=== PATIENT | male | born 1965 | race Two or more races ===

== ENCOUNTER 2021-06-09 20:50 | Inpatient (IN) | payer OTHER ==
[~2021-06-09] VITALS: Ht 175.3 cm; Wt 73.9 kg
--- NOTE | 2021-06-09 21:05 | NUR ---
BESSY 38 FROM HOME FOR C/O WEAKNESS S/P DILYSIS TODAY. PATIENT ALERT AND ORIENTED X3. BED RIDDEN WITH A DIAPER. PATIENT IN BED 08 ON MONITOR AND POX.
--- NOTE | 2021-06-09 21:17 | NUR ---
BLOOD COLLECTED AND SENT TO LAB
--- NOTE | 2021-06-09 21:21 | NUR ---
COVID SWAB DONE AND SENT TO LAB
--- NOTE | 2021-06-09 21:26 | NUR ---
POC GLUCOSE 105
[2021-06-09 21:30] LABS: BASOPHILS % (AUTO) 0.4 % (0.0-2.0); EOSINOPHILS % (AUTO) 0.2 % (0.0-6.0); HEMATOCRIT 26 % (39-51); HEMOGLOBIN 8.6 g/dL (13.5-17.5); LYMPHOCYTES # (AUTO) 0.3 K/uL (0.8-4.8); LYMPHOCYTES % (AUTO) 2.6 % (20.0-44.0); MEAN CORPUSCULAR HGB CONC 33 g/dl (31.0-36.0); MEAN CORPUSCULAR VOLUME 89 fL (80-96); MONOCYTES # (AUTO) 0.4 K/uL (0.1-1.30); MONOCYTES % (AUTO) 3.8 % (2.0-12.0); NEUTROPHILS # (AUTO) 9.1 K/uL (1.8-8.9); RED BLOOD CELL COUNT(AUTO) 2.97 MIL/uL (4.5-6.0); WHITE BLOOD COUNT (AUTO) 9.7 K/uL (4.3-11.0)
[2021-06-09 21:53] LABS: PLATELET COUNT (AUTO) 28 K/uL (150-450)
[2021-06-09 22:15] LABS: BAND % (MANUAL) 2 % (0.0-5.0); EOSINOPHILS % (MANUAL) 1 % (0-4); LYMPHOCYTES % (MANUAL) 2 % (16-48); MONOCYTES % (MANUAL) 5 % (0-11.0); NEUTROPHILS % (MANUAL) 90 (42-76)
[2021-06-09 22:23] LABS: CALCIUM, SERUM 7.6 mg/dL (8.5-10.1); CARBON DIOXIDE 32 mmol/L (21-32); CHLORIDE 102 mmol/L (98-107); CREATININE 2.9 mg/dL (0.6-1.3); GLUCOSE 109 mg/dL (74-106); SODIUM SERUM 135 mmol/L (136-145); UREA NITROGEN, BLOOD 33 mg/dL (7-18)
[2021-06-09 22:36] LABS: ALANINE AMINOTRANSFERASE 32 U/L (12-78); ALKALINE PHOSPHATASE 67 U/L (46-116); ASPARTATE AMINOTRANSFERASE 40 U/L (15-37); BILIRUBIN,DIRECT 0.4 mg/dL (0.0-0.2)
[2021-06-09] MEDS ORDERED: ZOLPIDEM TARTRATE 5 MG TABLET PO PRN (23:30)
[2021-06-09] MEDS ORDERED: ACETAMINOPHEN 325 MG TABLET PO PRN (23:30)
[2021-06-09] MEDS ORDERED: HYDROCODONE/APAP 10/325MG TABLET PO PRN (23:30)
[2021-06-09] MEDS ORDERED: Z GUARD REMEDY 4 OZ OINT TP PRN (23:30)
[2021-06-09] MEDS ORDERED: MAG HYDROX/AL HYDROX/SIMETH 30 ML UDC PO PRN (23:30)
[2021-06-09] MEDS ORDERED: MAGNESIUM HYDROXIDE 30 ML UDC PO PRN (23:30)
[2021-06-09] MEDS ORDERED: ONDANSETRON HCL/PF 4 MG/2 ML VIAL IVP PRN (23:30)
[2021-06-09] MEDS ORDERED: TEMAZEPAM 15 MG CAPSULE PO PRN (23:30)
[2021-06-09] MEDS ORDERED: HYDROCODONE/APAP 5/325MG TABLET PO PRN (23:30)
--- NOTE | 2021-06-10 | NUR ---
MRSA SWAB COLLECTED AND SENT TO LAB. PATIENT'S BELONGINGS LIST DONE.
--- NOTE | 2021-06-10 00:17 | NUR ---
REPORT GIVEN TO SHREYA SHEEHAN
--- NOTE | 2021-06-10 00:17 | NUR ---
RN NOTE RECEIVED REPORT FROM FELIPE AT ER FOR PT ADMISSION.
--- NOTE | 2021-06-10 00:27 | NUR ---
RN NOTE RECEIVED PATIENT ON AUBIRE FROM ER, WITH NO SOB OR DISCOMFORT. PATIENT ON NON REBREATHER MASK 10L SATURATING AT 100%. PATIENT IS A/O X 3, RESPONDS WELL TO QUESTIONS. L FA 18 G IV SITE NOTED, FLUSHED, PATENT, AND INTACT.PATIENT IS ON TELE MONITOR, SR 77HR. PATIENT WANTS TO HAVE A CODE STATUS OF DNR/DNI. PATIENT WEARING DIAPER, IS NOT ABLE TO AMBULATE AND IS BED BOUND, HOWEVER HAS MOBILITY TO MOVE AROUND FROM THE LEFT SIDE. ALL ISOLATION PRECAUTIONS TAKEN, BED IN LOW POSITION, LOCKED, AND IN CALL LIGHT WITHIN REACH. WILL CONTINUE TO MONITOR PATIENT THROUGHOUT THE NIGHT.
[2021-06-10] MEDS ORDERED: CEFEPIME 1 GM in IV D5W 50 ML IV SCH ×4 (00:30)
--- NOTE | 2021-06-10 00:39 | NUR ---
PATIENT TRANSFERRED VIA ACLS.
--- NOTE | 2021-06-10 01:35 | NUR ---
RN NOTE PATIENT TAKING OFF THE NON REBREATHER MASK, AND SAYING HE DOES NOT WANT IT. EXPLAINED THE IMPORTANCE OF MAINTAINING THE NON REBREATHER MASK ON IN ORDER TO NOT DESATURATE, HE SAID " I DO NOT CARE".
--- NOTE | 2021-06-10 01:46 | NUR ---
RN NOTE CHARGE NURSE BIRGIT AT SIDE, ASKED THE PATIENT HIS CODE STATUS ONCE MORE. HE CONTINUES TO WANT TO BE DNR/ DNI. PATIENT DID AGREE TO PUT THE NON REBREATHER MASK ON.
--- NOTE | 2021-06-10 01:50 | NUR ---
RN NOTE ON NON REBREATHER NOW AT 15L - SAT 100%
--- NOTE | 2021-06-10 01:52 | NUR ---
RN NOTE IV ABX NOT GIVEN AT ER, FAXED AND CALLED CLAUDIA TO BRING ME HIS CEFEPIME 1 GM.
[2021-06-10 02:00] VITALS: BP 121/68
[2021-06-10] MEDS ORDERED: CEFEPIME 1 GM VIAL ONE (02:07)
--- NOTE | 2021-06-10 06:00 | NUR ---
RN NOTE PATIENT KEEPS REMOVING NON BREATHER MASK AND DESATURATES IN OXYGEN LEVEL. HAVE TO CONSISTENTLY RE DIRECT PATIENT TO KEEP MASK ON.
[2021-06-10 06:46] LABS: BASOPHILS % (AUTO) 0.3 % (0.0-2.0); EOSINOPHILS % (AUTO) 0.3 % (0.0-6.0); HEMATOCRIT 24 % (39-51); HEMOGLOBIN 7.8 g/dL (13.5-17.5); LYMPHOCYTES # (AUTO) 0.6 K/uL (0.8-4.8); LYMPHOCYTES % (AUTO) 6.6 % (20.0-44.0); MEAN CORPUSCULAR HGB CONC 33 g/dl (31.0-36.0); MEAN CORPUSCULAR VOLUME 89 fL (80-96); MONOCYTES # (AUTO) 0.5 K/uL (0.1-1.30); MONOCYTES % (AUTO) 5.4 % (2.0-12.0); NEUTROPHILS # (AUTO) 7.4 K/uL (1.8-8.9); NEUTROPHILS % (AUTO) 87.4 % (43.0-81.0); RED BLOOD CELL COUNT(AUTO) 2.67 MIL/uL (4.5-6.0); WHITE BLOOD COUNT (AUTO) 8.4 K/uL (4.3-11.0)
[2021-06-10 07:05] LABS: CALCIUM, SERUM 7.6 mg/dL (8.5-10.1); PHOSPHORUS 4.5 mg/dL (2.5-4.9); POTASSIUM 4.3 mmol/L (3.5-5.1)
--- NOTE | 2021-06-10 07:20 | NUR ---
RN CLOSING NOTES NO SIG CHANGES THROUGHOUT THE NIGHT. ENDORSED PATIENT CARE TO AM NURSE.
--- NOTE | 2021-06-10 07:30 | NUR ---
RN OPENING NOTE RECEIVED PATIENT IN BED SLEEPING, WITH NO SOB OR DISCOMFORT. PATIENT ON NON REBREATHER MASK 15L SATURATING AT 100%. L FA 18 G IV SITE NOTED, FLUSHED, PATENT, AND INTACT.PATIENT IS ON TELE MONITOR NSR. PATIENT WEARING DIAPER, IS NOT ABLE TO AMBULATE AND IS BED BOUND, HOWEVER HAS MOBILITY TO MOVE AROUND FROM THE LEFT SIDE. ALL ISOLATION PRECAUTIONS TAKEN, BED IN LOW POSITION, LOCKED, AND IN CALL LIGHT WITHIN REACH. WILL CONTINUE TO MONITOR PATIENT THROUGHOUT THE SHIFT.
[2021-06-10] MEDS: LEVOTHYROXINE SODIUM 75 MCG TABLET PO SCH (07:35)
[2021-06-10] MEDS: PANTOPRAZOLE 40 MG TABLET.DR PO SCH (07:35)
[2021-06-10 08:00] VITALS: BP 140/69
[2021-06-10] MEDS: FINASTERIDE (5 MG) 5 MG TABLET PO SCH (08:05)
[2021-06-10] MEDS: GABAPENTIN 100 MG CAPSULE PO SCH ×3 (08:07→17:24)
[2021-06-10] MEDS: Fenofibrate 48 MG TABLET PO SCH (08:14)
[2021-06-10] MEDS: DULOXETINE HCL 30 MG CAPSULE.DR PO SCH (08:14)
[2021-06-10] MEDS: CALCIUM CARBONATE (1250) 500 MG TABLET PO SCH (08:14)
[2021-06-10] MEDS: FOLIC ACID 1 MG TABLET PO SCH (08:14)
[2021-06-10] MEDS: AMLODIPINE BESYLATE 10 MG TABLET PO SCH (08:15)
[2021-06-10] MEDS: LEVETIRACETAM (250 MG) 250 MG TABLET PO SCH ×2 (08:18→21:31)
[2021-06-10 08:34] LABS: PLATELET COUNT (AUTO) 37 K/uL (150-450)
[2021-06-10] MEDS ORDERED: AMLO-213 PO (08:44)
[2021-06-10] MEDS ORDERED: TAMS-12 PO (08:44)
[2021-06-10] MEDS ORDERED: DULO30CA2 PO (08:44)
[2021-06-10] MEDS ORDERED: SENN1TAB6 PO (08:44)
[2021-06-10] MEDS ORDERED: AMIN30LI2 PO (08:44)
[2021-06-10] MEDS ORDERED: CHOL100043 PO (08:44)
[2021-06-10] MEDS ORDERED: MAGN400O6 PO (08:44)
[2021-06-10] MEDS ORDERED: LORA-259 PO (08:44)
[2021-06-10] MEDS ORDERED: HYDR200T4 PO (08:44)
[2021-06-10] MEDS ORDERED: BISA10SU11 RC (08:44)
[2021-06-10] MEDS ORDERED: FINA5TAB11 PO (08:44)
[2021-06-10] MEDS ORDERED: GABA-536 PO (08:44)
[2021-06-10] MEDS ORDERED: PRED10TA PO (08:44)
[2021-06-10] MEDS ORDERED: CALC500T52 PO (08:44)
[2021-06-10] MEDS ORDERED: QUET25TA PO (08:44)
[2021-06-10] MEDS ORDERED: WARF3TAB59 PO (08:44)
[2021-06-10] MEDS ORDERED: LEVO25TA7 PO (08:44)
[2021-06-10] MEDS ORDERED: PANT40TA2 PO (08:44)
[2021-06-10] MEDS ORDERED: ATOR40TA PO (08:44)
[2021-06-10] MEDS ORDERED: ACET-868 PO (08:44)
[2021-06-10] MEDS ORDERED: ESCI10TA PO (08:44)
[2021-06-10] MEDS ORDERED: OMEG1CAP40 PO (08:44)
[2021-06-10] MEDS ORDERED: FENO67CA PO (08:44)
[2021-06-10] MEDS ORDERED: LEVE500T9 PO (08:44)
[2021-06-10] MEDS ORDERED: FOLI0.4T6 PO (08:44)
[2021-06-10] MEDS ORDERED: HYDR-4077 PO (08:44)
[2021-06-10] MEDS ORDERED: HYDR-4303 PO (08:44)
[2021-06-10] MEDS: HYDROXYCHLOROQUINE 200 MG TABLET PO SCH (08:58)
[2021-06-10] MEDS: predniSONE 5 MG TABLET PO SCH (08:58)
[2021-06-10] MEDS: PROSOURCE / PROSTAT (PYXIS) 30 ML UDC PO SCH ×3 (08:58→17:24)
[2021-06-10 10:30] LABS: ABG BASE EXCESS -1.1 mmol/L; ABG OXYGEN SATURATION 98.7 % (92.0-98.5); ABG PH 7.408 (7.350-7.450); ABG PO2 155.2 mmHg (75.0-100.0); AaDO2 519.8 mmHg; COHb 0.3 % (0.5-1.5); MetHb 0.2 % (0.0-1.5); O2Hb 98.2 % (94.0-97.0); SITE, ABG Right Radial; VENT MODE, BG NRB MASK
[2021-06-10] MEDS: methylPREDNISolone SOD SUCC 125 MG/2ML VIAL IV SCH ×3 (10:36→21:30)
[2021-06-10 12:00] VITALS: BP 119/69
[2021-06-10 12:44] LABS: THYROID STIMULATING HORMONE 3.216 uIU/mL (0.358-3.74)
[2021-06-10] MEDS ORDERED: CEFEPIME 1 GM in IV D5W 50 ML IV ONE (15:00)
[2021-06-10 16:00] VITALS: BP 119/77
[2021-06-10 17:51] LABS: LYMPHOCYTES % (MANUAL) 7 % (16-48); MONOCYTES % (MANUAL) 4 % (0-11.0); NEUTROPHILS % (MANUAL) 89 (42-76)
--- NOTE | 2021-06-10 18:39 | NUR ---
RN CLOSING NOTE PATIENT REMAINED STABLE THROUGHOUT SHIFT. PATIENT IS RESTING IN BED WITH NO SOB OR DISCOMFORT. PATIENT ON NON REBREATHER MASK 15L SATURATING AT 100%. L FA 18 G IV SITE NOTED, FLUSHED, PATENT, AND INTACT.PATIENT IS ON TELE MONITOR NSR IN THE 70'S. PATIENT WEARING DIAPER, IS NOT ABLE TO AMBULATE AND IS BED BOUND, HOWEVER HAS MOBILITY TO MOVE AROUND FROM THE LEFT SIDE. ALL NEEDS MET AND MEDS ADMINISTERED PER MD ORDER. ALL SAFETY MEASURES NOTED AND ACCOUNTED FOR. ALL ISOLATION PRECAUTIONS TAKEN, BED IN LOW POSITION, LOCKED, AND CALL LIGHT WITHIN REACH. WILL ENDORSE TO SHOVEL OILER RN..
--- NOTE | 2021-06-10 19:20 | NUR ---
PATIENT IN BED, ASLEEP ON NON REBREATHER MASK 15L SATURATING AT 100%, NO SOB/ACUTE DISTRESS NOTED, NSR ON TELE MONITOR WITH HR IN THE 80-S AT THIS TIME, ALL SAFETY MEASURES IN PLACED, ISOLATION PRECAUTIONS FOLLOWED, COVID PCR STILL PENDING, WILL CONTINUE TO MONITOR CLOSELY.
[2021-06-10 20:00] VITALS: BP 138/71
[2021-06-10] MEDS: ATORVASTATIN 40 MG TABLET PO SCH (21:31)
[2021-06-10] MEDS: TAMSULOSIN 0.4 MG CAP.SR.24H PO SCH (21:31)
[2021-06-11] VITALS: BP 126/80
[2021-06-11] MEDS ORDERED: EPOETIN ALFA (4000 UNIT) 4,000 UNIT/ML VIAL IV SCH (00:30)
[2021-06-11] MEDS ORDERED: VANCOMYCIN 1 GM VIAL ONE (03:03)
[2021-06-11 04:00] VITALS: BP 129/78
[2021-06-11] MEDS: methylPREDNISolone SOD SUCC 125 MG/2ML VIAL IV SCH ×3 (04:15→20:04)
--- NOTE | 2021-06-11 06:38 | NUR ---
RN CLOSING NOTE, PATIENT IN BED, ON NRM 15LPM, NO SOB/ACUTE DISTRESS NOTED OR DISCOMFORT, 1005 O2 SAT, MORE COMPLIANT, HE DIDN'T ATTEMPT TO REMOVED MASK LIKE LAST NIGHT, BUT SOON HE REMOVES 02 DROPS TO 60-70S, NSR IN TELE MONITOR NSR IN THE 70'S-80S. OTHERWISE STABLE THROUGHOUT NIGHT ON NRM, ALL NEEDS MET AND MEDS ADMINISTERED ORDERED, ALL SAFETY MEASURES FOLLOWED, ALL ISOLATION PRECAUTIONS IN PLACED, BED LOCKED AND IN LOWEST POSITION, CALL LIGHT WITHIN REACH, WILL ENDORSE CONTINUITY OF CARE TO ONCOMING NURSE.
--- NOTE | 2021-06-11 07:24 | NUR ---
RN OPENING NOTE RECEIVE REPORT FROM DRILLING INSPECTOR NURSE. PATIENT IN STABLE CONDITION AND RESTING COMFORTABLY. ON NRM AT 15L/MIN. WILL FOLLOW UP AM LABS AND DOCTORS ORDERS. PROPER ISOLATION IN PLACE. BED ON LOWEST POSITION WITH HOB ELEVATED AND 3 SIDE RAIL UP. CALL LIGHT WITHIN REACH. WILL CONTINUE TO MONITOR.
[2021-06-11 07:26] LABS: BASOPHILS % (AUTO) 0.5 % (0.0-2.0); EOSINOPHILS % (AUTO) 0.1 % (0.0-6.0); HEMATOCRIT 30 % (39-51); HEMOGLOBIN 9.5 g/dL (13.5-17.5); LYMPHOCYTES # (AUTO) 0.2 K/uL (0.8-4.8); LYMPHOCYTES % (AUTO) 6.8 % (20.0-44.0); MEAN CORPUSCULAR HGB CONC 32 g/dl (31.0-36.0); MEAN CORPUSCULAR VOLUME 89 fL (80-96); MONOCYTES # (AUTO) 0.1 K/uL (0.1-1.30); MONOCYTES % (AUTO) 2.5 % (2.0-12.0); NEUTROPHILS # (AUTO) 3.3 K/uL (1.8-8.9); NEUTROPHILS % (AUTO) 90.1 % (43.0-81.0); PLATELET COUNT (AUTO) 63 K/uL (150-450); RED BLOOD CELL COUNT(AUTO) 3.39 MIL/uL (4.5-6.0); WHITE BLOOD COUNT (AUTO) 3.6 K/uL (4.3-11.0)
[2021-06-11 07:40] LABS: CALCIUM, SERUM 7.9 mg/dL (8.5-10.1); CREATININE 4.1 mg/dL (0.6-1.3); POTASSIUM 5.2 mmol/L (3.5-5.1)
[2021-06-11 08:00] VITALS: BP 133/83
[2021-06-11] MEDS: FOLIC ACID 1 MG TABLET PO SCH (08:07)
[2021-06-11] MEDS: DULOXETINE HCL 30 MG CAPSULE.DR PO SCH (08:07)
[2021-06-11] MEDS: Fenofibrate 48 MG TABLET PO SCH (08:07)
[2021-06-11] MEDS: FINASTERIDE (5 MG) 5 MG TABLET PO SCH (08:07)
[2021-06-11] MEDS: LEVOTHYROXINE SODIUM 75 MCG TABLET PO SCH (08:08)
[2021-06-11] MEDS: AMLODIPINE BESYLATE 10 MG TABLET PO SCH (08:10)
[2021-06-11] MEDS: HYDROXYCHLOROQUINE 200 MG TABLET PO SCH (08:12)
[2021-06-11] MEDS: predniSONE 5 MG TABLET PO SCH (08:12)
[2021-06-11] MEDS: PANTOPRAZOLE 40 MG TABLET.DR PO SCH (08:12)
[2021-06-11] MEDS: LEVETIRACETAM (250 MG) 250 MG TABLET PO SCH ×2 (08:12→20:04)
[2021-06-11] MEDS: CALCIUM CARBONATE (1250) 500 MG TABLET PO SCH (08:12)
[2021-06-11] MEDS: GABAPENTIN 100 MG CAPSULE PO SCH ×3 (08:13→16:42)
[2021-06-11] MEDS: PROSOURCE / PROSTAT (PYXIS) 30 ML UDC PO SCH ×3 (08:14→16:53)
[2021-06-11 12:00] VITALS: BP 118/68
--- NOTE | 2021-06-11 14:17 | NUR ---
RN NOTE INFORM DR. KUMARI PER PATIENT INR OF 4.38
[2021-06-11] MEDS: CEFEPIME 2 GM in IV D5W 100 ML IV SCH (15:25)
[2021-06-11 16:00] VITALS: BP 133/78
[2021-06-11] MEDS: CARVEDILOL 3.125 MG TABLET PO SCH (16:42)
--- NOTE | 2021-06-11 19:00 | NUR ---
RN NOTE RECEIVED PATINET IN BED RESTING ALERT ORIENTED X3-4 VERBALLY RESPONSIVE ON 15L NON REBREATHER MASK O2:100% IV SITE IS ON LEFT FOREARM INTACT PATENT AND RIGHT UPPER CHEST PERM-CATH FOR DIALYSIS.SAFETY MEASURE IMPLEMENT BED IN LOW POSITION AND LOCKED HEAD OF THE BED ELEVATED CALL LIGHT WITHIN REACH CONTINUE TO MONITOR.
--- NOTE | 2021-06-11 19:55 | NUR ---
RN CLOSING NOTE PATIENT REMAIN IN STABLE CONDITION THROUGHOUT SHIFT. VITAL SIGNS WNL. REMAIN ON NONREBREATHER MASK AT 15L/MIN AND O2 100%. RECEIVE HEMODIALYSIS WITH 2L TAKEN OUT. PATIENT REMAIN IN STABLE CONDITION POST HEMODIALYSIS. REPORT WAS GIVEN TO PROFESSIONAL DEVELOPMENT INSTRUCTOR NURSE. ALL SAFETY MEASURE IN PLACE.
[2021-06-11 20:00] VITALS: BP 134/76
[2021-06-11] MEDS: TAMSULOSIN 0.4 MG CAP.SR.24H PO SCH (21:53)
[2021-06-11] MEDS: ATORVASTATIN 40 MG TABLET PO SCH (21:53)
[2021-06-12] VITALS: BP 136/78
[2021-06-12 04:00] VITALS: BP 118/70
[2021-06-12] MEDS: methylPREDNISolone SOD SUCC 125 MG/2ML VIAL IV SCH ×3 (04:39→21:14)
--- NOTE | 2021-06-12 06:29 | NUR ---
RN NOTE PATIENT REFUSES ALL MORNING LABS EXPLAINED RISKS AND BENEFITS HE STILL REFUSED NOTIFIED WREATH AND GARLAND MAKER FREDERICK SIDDIQUI CONTINUE TO MONITOR.
--- NOTE | 2021-06-12 06:42 | NUR ---
RN NOTE PATIENT REMAINS ALERT ORIENTED X3-4 VERBALLY RESPONSIVE ON 15L OXYGEN VIA NON REBREATHER MASK O2:100%,HE REFUSED MORNING LABS INFORMED MD KEPT CLEAN AND DRY ALL THE TIME,KEPT COMFORTABLE REPOSITIONED EVERY 2 HOURS,KEPT HEAD OF THE BED ELEVATED ALL THE TIME,ENDORSE NEXT COMING SHIFT FOR CONTINUATION OF CARE.
[2021-06-12 08:00] VITALS: BP 122/75
[2021-06-12] MEDS: PANTOPRAZOLE 40 MG TABLET.DR PO SCH (08:14)
[2021-06-12] MEDS: LEVOTHYROXINE SODIUM 75 MCG TABLET PO SCH (08:14)
[2021-06-12] MEDS: FINASTERIDE (5 MG) 5 MG TABLET PO SCH (08:18)
[2021-06-12] MEDS: CALCIUM CARBONATE (1250) 500 MG TABLET PO SCH (08:19)
[2021-06-12] MEDS: DULOXETINE HCL 30 MG CAPSULE.DR PO SCH (08:19)
[2021-06-12] MEDS: Fenofibrate 48 MG TABLET PO SCH (08:19)
[2021-06-12] MEDS: FOLIC ACID 1 MG TABLET PO SCH (08:19)
[2021-06-12] MEDS: HYDROXYCHLOROQUINE 200 MG TABLET PO SCH (08:19)
[2021-06-12] MEDS: LEVETIRACETAM (250 MG) 250 MG TABLET PO SCH ×2 (08:19→21:15)
[2021-06-12] MEDS: GABAPENTIN 100 MG CAPSULE PO SCH ×3 (08:19→17:06)
[2021-06-12] MEDS: predniSONE 5 MG TABLET PO SCH (08:19)
[2021-06-12] MEDS: PROSOURCE / PROSTAT (PYXIS) 30 ML UDC PO SCH ×3 (08:20→17:06)
[2021-06-12] MEDS: AMLODIPINE BESYLATE 10 MG TABLET PO SCH (08:24)
[2021-06-12] MEDS: CARVEDILOL 3.125 MG TABLET PO SCH ×2 (08:24→17:06)
--- NOTE | 2021-06-12 09:30 | NUR ---
RN NOTES DUE MEDS GIVEN
[2021-06-12 12:00] VITALS: BP 124/73
[2021-06-12 14:58] LABS: HEMATOCRIT 25 % (39-51); LYMPHOCYTES # (AUTO) 0.2 K/uL (0.8-4.8); LYMPHOCYTES % (AUTO) 3.9 % (20.0-44.0); MEAN CORPUSCULAR HGB CONC 32 g/dl (31.0-36.0); MEAN CORPUSCULAR VOLUME 89 fL (80-96); MONOCYTES # (AUTO) 0.3 K/uL (0.1-1.30); MONOCYTES % (AUTO) 5.1 % (2.0-12.0); NEUTROPHILS # (AUTO) 5.3 K/uL (1.8-8.9); PLATELET COUNT (AUTO) 65 K/uL (150-450); RED BLOOD CELL COUNT(AUTO) 2.84 MIL/uL (4.5-6.0); WHITE BLOOD COUNT (AUTO) 5.8 K/uL (4.3-11.0)
[2021-06-12] MEDS: CEFEPIME 2 GM in IV D5W 100 ML IV SCH (15:28)
[2021-06-12 16:00] VITALS: BP 134/65
[2021-06-12 16:04] LABS: CALCIUM, SERUM 7.4 mg/dL (8.5-10.1); CREATININE 3.6 mg/dL (0.6-1.3); POTASSIUM 4.9 mmol/L (3.5-5.1)
--- NOTE | 2021-06-12 18:45 | NUR ---
RIBBON WINDER CLOSING NOTES PT RESTING COMFORTABLY, A/O 4, RESPIRATION UNLABORED ON NRM AT 15L, O2 SAT 100%. DENIES PAIN AT THIS TIME. SR HR 80s- 90s. RT CHEST PERMACATH IN PLACE. LFA 18G FLUSHES WELL. SITE CLEAR. PERFORMED PM CARE EARLIER. ASSISTED/ TURNED AND REPOSITIONED Q 2 HOURS. HOB ELEVATED. SAFETY MEASURES IN PLACE, BED LOW LOCKED, ALL NEEDS MET AT THIS TIME. WILL ENDORSE TO NEXT SHIFT FOR JUSTEN.
[2021-06-12 20:00] VITALS: BP 119/72
--- NOTE | 2021-06-12 20:00 | NUR ---
MOUNTING MACHINE OPERATOR CLOSING NOTES RECEIVED PT IN BED RESTING A/O X4, NO SOB NO DISTRESS NOTED RESPIRATION EVEN UNLABORED ,PTS ON NRM AT 15L, O2 SAT 99- 100%. NO C/O OF PAIN AT THIS TIME. SR 79, V/S STABLE AFEBRILE ,WITH RT CHEST PERMACATH IN PLACE. LFA 18G INTACT AND FLUSHES WELL. ALL DUE MEDS GIVEN ORDERED NO ASE NOTED. TURNED AND REPOSITIONED Q 2 HOURS. HOB ELEVATED.AT ALL TIME . SAFETY MEASURES IN PLACE, BED LOW LOCKED, ALL NEEDS ATTENDED TOO.WILL CONTINUE TO MONITOR PTS. Addendum: 06/13/21 at 0725 by MADDIE GARVEY RN rn opening notes
[2021-06-12] MEDS: TAMSULOSIN 0.4 MG CAP.SR.24H PO SCH (21:15)
[2021-06-12] MEDS: ATORVASTATIN 40 MG TABLET PO SCH (21:15)
[2021-06-13] VITALS: BP 122/67
[2021-06-13 04:00] VITALS: BP 114/69
[2021-06-13] MEDS: methylPREDNISolone SOD SUCC 125 MG/2ML VIAL IV SCH ×3 (05:44→17:09)
[2021-06-13 06:51] LABS: CALCIUM, SERUM 7.7 mg/dL (8.5-10.1); CREATININE 4.1 mg/dL (0.6-1.3); POTASSIUM 5.2 mmol/L (3.5-5.1)
[2021-06-13 07:20] LABS: HEMATOCRIT 27 % (39-51); HEMOGLOBIN 8.3 g/dL (13.5-17.5); LYMPHOCYTES # (AUTO) 0.2 K/uL (0.8-4.8); LYMPHOCYTES % (AUTO) 3.1 % (20.0-44.0); MEAN CORPUSCULAR HGB CONC 32 g/dl (31.0-36.0); MEAN CORPUSCULAR VOLUME 89 fL (80-96); MONOCYTES # (AUTO) 0.2 K/uL (0.1-1.30); MONOCYTES % (AUTO) 4.3 % (2.0-12.0); NEUTROPHILS % (AUTO) 92.6 % (43.0-81.0); PLATELET COUNT (AUTO) 68 K/uL (150-450); RED BLOOD CELL COUNT(AUTO) 2.98 MIL/uL (4.5-6.0); WHITE BLOOD COUNT (AUTO) 5.4 K/uL (4.3-11.0)
--- NOTE | 2021-06-13 07:25 | NUR ---
tele closing rn notes endorse to rn amirah for continuity of care, pts stable no frankie the whole shift
--- NOTE | 2021-06-13 07:30 | NUR ---
LIBRARY ACQUISITIONS TECHNICIAN AM NOTES PATIENT IN BED, AO X 4, ON 15L NRM, O2 SAT 100%, NOT IN ANY DISTRESS, RESPIRATION UNLABORED. NO SOB OR DISCOMFORT. SR HR 80 ON MONITOR. WITH RIGHT CHEST PERMA CATH IN PLACE. CDI DRESSING. LFA 18G FLUSHES WELL, SITE CLEAR. UNABLE TO AMBULATE, WEARS DIAPER, ABLE TO TURN SELF.RENAL STANDARD DIET. ABLE TO SWALLOW PILLS. HOB ELEVATED. SAFETY MEASURES IN PLACE. ISOLATION PRECAUTION OBSERVED. BED LOW LOCKED, SRU X 2, CALL LIGHT WITHIN REACH, WILL CONT TO MONITOR.
[2021-06-13 08:00] VITALS: BP 124/69
[2021-06-13] MEDS: LEVOTHYROXINE SODIUM 75 MCG TABLET PO SCH (08:29)
[2021-06-13] MEDS: PANTOPRAZOLE 40 MG TABLET.DR PO SCH (08:29)
[2021-06-13] MEDS: CALCIUM CARBONATE (1250) 500 MG TABLET PO SCH (08:34)
[2021-06-13] MEDS: DULOXETINE HCL 30 MG CAPSULE.DR PO SCH (08:34)
[2021-06-13] MEDS: Fenofibrate 48 MG TABLET PO SCH (08:34)
[2021-06-13] MEDS: FOLIC ACID 1 MG TABLET PO SCH (08:35)
[2021-06-13] MEDS: GABAPENTIN 100 MG CAPSULE PO SCH ×3 (08:35→17:09)
[2021-06-13] MEDS: LEVETIRACETAM (250 MG) 250 MG TABLET PO SCH ×2 (08:35→21:15)
[2021-06-13] MEDS: HYDROXYCHLOROQUINE 200 MG TABLET PO SCH (08:35)
[2021-06-13] MEDS: CARVEDILOL 3.125 MG TABLET PO SCH ×2 (08:36→17:00)
[2021-06-13] MEDS: AMLODIPINE BESYLATE 10 MG TABLET PO SCH (08:36)
[2021-06-13] MEDS: PROSOURCE / PROSTAT (PYXIS) 30 ML UDC PO SCH ×3 (08:37→17:09)
[2021-06-13] MEDS: FINASTERIDE (5 MG) 5 MG TABLET PO SCH (08:38)
[2021-06-13] MEDS: predniSONE 5 MG TABLET PO SCH (08:38)
--- NOTE | 2021-06-13 09:30 | NUR ---
RN NOTES DUE MEDS GIVEN
--- NOTE | 2021-06-13 11:30 | NUR ---
RN NOTES PER DR. HAZEL, PUT PATIENT ON 6 LITERS O2 NASAL CANULA THEN DO ABG POST 30 MINUTES. ELOY Gil NOTIFIED.
[2021-06-13 12:00] VITALS: BP 115/70
[2021-06-13 12:20] LABS: ABG BASE EXCESS -2.6 mmol/L; ABG PO2 71.8 mmHg (75.0-100.0); AaDO2 202.4 mmHg; COHb 0.8 % (0.5-1.5); MetHb 0.2 % (0.0-1.5); O2Hb 92.1 % (94.0-97.0); SITE, ABG Right Radial; VENT MODE, BG 6L NC
[2021-06-13] MEDS: CEFEPIME 2 GM in IV D5W 100 ML IV SCH (15:08)
[2021-06-13 16:00] VITALS: BP 117/73
--- NOTE | 2021-06-13 16:39 | NUR ---
RN NOTES VERIFIED WITH DR. SOLIMAN, PATIENT'S MORELOS CATHETER WAS CHANGED LAST 06/11/2021. PER HIM, CANCEL NEW ORDER TO REPLACE FOELY CATHETER. Addendum: 06/13/21 at 1640 by GUZMAN CARRILLO RN CORRECTION: DISREGARD THIS DOCUMENTATION INTENDED FOR ANOTHER PATIENT.
--- NOTE | 2021-06-13 17:11 | NUR ---
RN NOTES COREG NOT GIVEN. ONGOING HD
--- NOTE | 2021-06-13 18:53 | NUR ---
CHIEF MARKETING OFFICER CLOSING NOTES PT RESTING COMFORTABLY, A/O 4, RESPIRATION UNLABORED ON 6L O2 NASAL CANULA. O2 SAT 95%-100%. DENIES PAIN AT THIS TIME. SR HR 80s- 90s. RT CHEST PERMACATH IN PLACE. LFA 18G FLUSHES WELL. SITE CLEAR. PERFORMED PM CARE EARLIER. ASSISTED/ TURNED AND REPOSITIONED Q 2 HOURS. HOB ELEVATED. SAFETY MEASURES IN PLACE, BED LOW LOCKED, ALL NEEDS MET AT THIS TIME. WILL ENDORSE TO NEXT SHIFT FOR JUSTEN. HEMODIALYSIS TODAY WITH 1100 ML OUTPUT
[2021-06-13 20:00] VITALS: BP_SYST 108; BP_SYST 122; BP_DIAS 71; BP_DIAS 77
[2021-06-13] MEDS: ATORVASTATIN 40 MG TABLET PO SCH (21:14)
[2021-06-13] MEDS: TAMSULOSIN 0.4 MG CAP.SR.24H PO SCH (21:15)
[2021-06-14] VITALS: BP 112/70
[2021-06-14 04:00] VITALS: BP 108/70
--- NOTE | 2021-06-14 04:16 | NUR ---
RN notes Eyes closed,, in bed resting comfortably. No distress noted breathing even and unlabored. On 6lpm O2 via nasal cannula tolerating well. Alert and oriented x 2 with episodes of confusion. Able to verbally communicate needs. Follows command. No complaint of pain or discomfort. No significant change of condition. Kept clean and dry. Will endorse to next shift for continuity of care.
--- NOTE | 2021-06-14 07:33 | NUR ---
PACKER FUSER OPENING NOTES RECEIVED PATIENT IN BED RESTING COMFORTABLY, A/OX4, RESPIRATION UNLABORED ON 6L O2 NASAL CANULA. O2 SAT 95%-100%. DENIES PAIN AT THIS TIME. TELE MONITOR WITH A CURRENT READING OF SR HR 80s. R CHEST PERMACATH IN PLACE. LFA 18G FLUSHES WELL. SITE CLEAR. HOB ELEVATED. SAFETY MEASURES IN PLACE, BED IN LOW POSITION AND LOCKED, RAILS UP X2, CALL LIGHT WITHIN REACH. WILL CONTINUE TO MONITOR PATIENT.
[2021-06-14] MEDS: methylPREDNISolone SOD SUCC 125 MG/2ML VIAL IV SCH ×2 (08:41→17:12)
[2021-06-14] MEDS: LEVOTHYROXINE SODIUM 75 MCG TABLET PO SCH (08:44)
[2021-06-14] MEDS: CARVEDILOL 3.125 MG TABLET PO SCH ×2 (08:44→17:13)
[2021-06-14] MEDS: AMLODIPINE BESYLATE 10 MG TABLET PO SCH (08:44)
[2021-06-14] MEDS: PANTOPRAZOLE 40 MG TABLET.DR PO SCH (08:44)
[2021-06-14] MEDS: FOLIC ACID 1 MG TABLET PO SCH (08:46)
[2021-06-14] MEDS: HYDROXYCHLOROQUINE 200 MG TABLET PO SCH (08:46)
[2021-06-14] MEDS: LEVETIRACETAM (250 MG) 250 MG TABLET PO SCH ×2 (08:46→21:17)
[2021-06-14] MEDS: GABAPENTIN 100 MG CAPSULE PO SCH ×3 (08:48→17:12)
[2021-06-14] MEDS: PROSOURCE / PROSTAT (PYXIS) 30 ML UDC PO SCH ×3 (08:48→17:10)
[2021-06-14] MEDS: DULOXETINE HCL 30 MG CAPSULE.DR PO SCH (08:48)
[2021-06-14] MEDS: CALCIUM CARBONATE (1250) 500 MG TABLET PO SCH (08:48)
[2021-06-14] MEDS: Fenofibrate 48 MG TABLET PO SCH (08:50)
[2021-06-14] MEDS: FINASTERIDE (5 MG) 5 MG TABLET PO SCH (08:51)
[2021-06-14] MEDS: predniSONE 5 MG TABLET PO SCH (08:53)
[2021-06-14 08:59] VITALS: BP 133/73
[2021-06-14 10:40] LABS: BASOPHILS % (AUTO) 0.1 % (0.0-2.0); HEMATOCRIT 27 % (39-51); HEMOGLOBIN 8.5 g/dL (13.5-17.5); LYMPHOCYTES # (AUTO) 0.3 K/uL (0.8-4.8); LYMPHOCYTES % (AUTO) 3.6 % (20.0-44.0); MEAN CORPUSCULAR HGB CONC 32 g/dl (31.0-36.0); MEAN CORPUSCULAR VOLUME 88 fL (80-96); MONOCYTES # (AUTO) 0.7 K/uL (0.1-1.30); MONOCYTES % (AUTO) 7.5 % (2.0-12.0); NEUTROPHILS # (AUTO) 7.9 K/uL (1.8-8.9); NEUTROPHILS % (AUTO) 88.8 % (43.0-81.0); PLATELET COUNT (AUTO) 74 K/uL (150-450); RED BLOOD CELL COUNT(AUTO) 3.03 MIL/uL (4.5-6.0); WHITE BLOOD COUNT (AUTO) 8.9 K/uL (4.3-11.0)
[2021-06-14 11:02] LABS: CALCIUM, SERUM 7.6 mg/dL (8.5-10.1); CREATININE 3.4 mg/dL (0.6-1.3)
[2021-06-14 12:21] VITALS: BP 131/80
[2021-06-14] MEDS: CEFEPIME 2 GM in IV D5W 100 ML IV SCH (14:25)
[2021-06-14 16:00] VITALS: BP 126/76
--- NOTE | 2021-06-14 18:44 | NUR ---
BALANCE STAFF INSPECTOR CLOSING NOTES PATIENT REMAINS IN BED RESTING COMFORTABLY, A/OX4, RESPIRATION UNLABORED ON 5L O2 NASAL CANULA. O2 SAT 95%-100%. DENIES PAIN DURING THE DAY. TELE MONITOR WITH A CURRENT READING OF SR HR 80s. R CHEST PERMACATH IN PLACE. LFA 18G FLUSHES WELL. SITE CLEAR. ALL NEEDS ATTENDED DURING THE DAY. HOB ELEVATED. SAFETY MEASURES IN PLACE, BED IN LOW POSITION AND LOCKED, RAILS UP X2, CALL LIGHT WITHIN REACH. WILL ENDORSE TO DIAMOND GRINDER NURSE FOR JUSTEN.
[2021-06-14 20:00] VITALS: BP 133/78
[2021-06-14] MEDS: TAMSULOSIN 0.4 MG CAP.SR.24H PO SCH (21:17)
[2021-06-14] MEDS: ATORVASTATIN 40 MG TABLET PO SCH (21:17)
[2021-06-15] VITALS: BP 105/57
[2021-06-15 04:00] VITALS: BP 109/62
--- NOTE | 2021-06-15 06:20 | NUR ---
RN note Received patient in bed, eyes closed, resting comfortably. No distress noted breathing even and unlabored. On 6lpm O2 via nasal cannula tolerating well. Alert and oriented x 2 with episodes of confusion. Able to verbally communicate needs mostly lithuanian speaking. Follows command. At about 22:00 noted patient to be crying and moaning. Unable to answer question of why give a pain scale. Aminitered [place] 10/325, with relief. Still awake, ambien given with help. Patient was pointing at his stomac, maalox given with relief. After 30 minutes, patient's face was relaxed, no facial grimmace or moaning. Kept clean and dry. Will endorse to next shift for continuity of care.
--- NOTE | 2021-06-15 07:15 | NUR ---
agent telegrapher note patient in bed , sleeping comfortably at this time, on 5l of nc , no sob noted at this time ,saturation 96%, lt fa hl intact and flushed well , rt chest wall Perma cath in place . on tele monitor sr , bed in lowest and locked position , call light within reach, will cont to monitor
[2021-06-15] MEDS: LEVOTHYROXINE SODIUM 75 MCG TABLET PO SCH (07:30)
[2021-06-15] MEDS: PANTOPRAZOLE 40 MG TABLET.DR PO SCH (07:30)
[2021-06-15 08:00] VITALS: BP 128/77
[2021-06-15 08:35] LABS: ABG BASE EXCESS 1.2 mmol/L; ABG OXYGEN SATURATION 92.6 % (92.0-98.5); ABG PCO2 38.1 mmHg (35.0-45.0); ABG PH 7.441 (7.350-7.450); ABG PO2 68.2 mmHg (75.0-100.0); AaDO2 173.2 mmHg; COHb 0.6 % (0.5-1.5); MetHb 0.1 % (0.0-1.5); SITE, ABG Right Radial
[2021-06-15] MEDS: FINASTERIDE (5 MG) 5 MG TABLET PO SCH (08:49)
[2021-06-15] MEDS: LEVETIRACETAM (250 MG) 250 MG TABLET PO SCH ×2 (08:49→22:27)
[2021-06-15] MEDS: CALCIUM CARBONATE (1250) 500 MG TABLET PO SCH (08:50)
[2021-06-15] MEDS: AMLODIPINE BESYLATE 10 MG TABLET PO SCH (08:51)
[2021-06-15] MEDS: FOLIC ACID 1 MG TABLET PO SCH (08:51)
[2021-06-15] MEDS: DULOXETINE HCL 30 MG CAPSULE.DR PO SCH (08:51)
[2021-06-15] MEDS: GABAPENTIN 100 MG CAPSULE PO SCH ×3 (08:52→16:05)
[2021-06-15] MEDS: CARVEDILOL 3.125 MG TABLET PO SCH ×2 (08:53→16:05)
[2021-06-15] MEDS: methylPREDNISolone SOD SUCC 125 MG/2ML VIAL IV SCH ×2 (08:54→16:05)
[2021-06-15] MEDS: PROSOURCE / PROSTAT (PYXIS) 30 ML UDC PO SCH ×3 (08:58→16:05)
[2021-06-15] MEDS: Fenofibrate 48 MG TABLET PO SCH (09:00)
[2021-06-15] MEDS: predniSONE 5 MG TABLET PO SCH (09:00)
[2021-06-15] MEDS: HYDROXYCHLOROQUINE 200 MG TABLET PO SCH (09:00)
--- NOTE | 2021-06-15 09:00 | NUR ---
OUTPATIENT DIETITIAN NOTE CHEST X RAY DONE ORDERED ALSO REFUSED SOME PO MERDS WILL ENCOURAGE TO TAKE PO MEDS ,. FED PATIENT ABLE TO EAT 100O% BREAKFAST
[2021-06-15] MEDS ORDERED: WARFARIN SODIUM 5 MG TABLET PO SCH (09:30)
--- NOTE | 2021-06-15 11:13 | NUR ---
telecommunications equipment installer note seen by dr mac, updated patient condition
[2021-06-15 12:00] VITALS: BP 113/63
--- NOTE | 2021-06-15 12:24 | NUR ---
telepathist note abg done ,per rt placed on 6l l nc
[2021-06-15] MEDS: CEFEPIME 2 GM in IV D5W 100 ML IV SCH (14:11)
--- NOTE | 2021-06-15 15:36 | NUR ---
telephone worker note rounds made . all needs attended ,turn reposition q2 hour , keep clean dry , call light within reach
--- NOTE | 2021-06-15 15:57 | NUR ---
telephone cleaner note on hd started as ordered
[2021-06-15 16:00] VITALS: BP 127/76
--- NOTE | 2021-06-15 16:29 | NUR ---
telern note on hd ,hold Coreg at this time
--- NOTE | 2021-06-15 18:26 | NUR ---
telephone cleaner note on hd at this time,all needs attended, no sob noted, on 6l nc, bed in lowest and locked position , call light within reach, will cont to monitor closely
--- NOTE | 2021-06-15 19:09 | NUR ---
telegraph mechanic note hd completed 2l of fluid out
[2021-06-15 20:00] VITALS: BP 139/77
--- NOTE | 2021-06-15 21:25 | NUR ---
2124 [place] patient's bed alarm went off and found patient on the floor. Unable to answer how he fell when asked. Patient able to turn to his side and able to move both legs and left arm. Patient with hx of cva with right sided weakness. Placed back to bed. Skin assessment done. Noted with bleeding from back of his head and bruise on upper back. Patient denies headache but with c/o back pain when asked. Vital signs taken as follows: bp 144/87, hr 90, Os saturation 97% on 2 liters. LAUREEN Chatterjee notified with orders made. Orders noted and carried out. Addendum: 06/16/21 at 0718 by EDEN HUGHES RN 2124 O2 SATURATION 97% ON 5L.
--- NOTE | 2021-06-15 21:45 | NUR ---
1045 Re assessed patient. Awake and verbally responsive. Able to answer simple questions and follow commands. Able to move lower extremities and left arm and able to assist with turning. Bleeding from back of head has stopped. Cont. to deny headache when asked. Waiting for radiology to take patient for CT.
--- NOTE | 2021-06-15 22:05 | NUR ---
[address] on ACLS protocol. Patient remains awake and verbally responsive. No changes in neuro status note. No distress noted.
--- NOTE | 2021-06-15 22:20 | NUR ---
[address] accompanied by primary RN. Pt. remains awake and verbally responsive. Neuro status unchanged. Bilateral soft wrist restraints applied for safety. Patient being closely monitored.
[2021-06-15] MEDS: TAMSULOSIN 0.4 MG CAP.SR.24H PO SCH (22:27)
[2021-06-15] MEDS: ATORVASTATIN 40 MG TABLET PO SCH (22:27)
--- NOTE | 2021-06-15 22:55 | NUR ---
4241 LAUREEN SIDDIQUI CALLED AND ASKED FOR CODE STROKE ACTIVATION IN ORDER FOR PATIENT TO BE SEEN BY NEUROLOGIST. HOUSE SUP NOTIFIED. COMMERCIAL GREEN BUILDING DESIGNER CALLED FIRST PER PROTOCOL.
--- NOTE | 2021-06-15 23:00 | NUR ---
2300 PATIENT AWAKE IN BED. NO NEURO CHANGES NOTED. STILL ABLE TO ANSWER SIMPLE QUESTIONS AND FOLLOW SIMPLE COMMANDS. ABLE TO MOVE BOTH LEGS AND LEFT ARM WHEN PROMPTED. CONT. TO DENY HEADACHE. BLEEDING FROM BACK OF HEAD STOPPED. ICU CHARGE NURSE AT BEDSIDE ASSESSING PATIENT.
--- NOTE | 2021-06-15 23:02 | NUR ---
2302 CODE STROKE ACTIVATED.
--- NOTE | 2021-06-15 23:10 | NUR ---
DIE SIZER CUSTOMER SERVICE PROFESSIONAL WAS ACTIVATED@ .. DNR/DNI CODE. S/P FALL @.30. CT HEAD - 21.40. PT IS AWAKE, ALERT, ORIENTED X 2. DENIES ANY PAIN, SOB OR ANY OTHER DISCOMFORT. FOLLOWS SIMPLE COMMANDS. MOVES LEFT ARM & BOTH LEGS. RIGHT ARM WEAKNESS D/T PREVIOUS STROKE. NO SENSORY DEFICIT. NO SIGHS OF FASCIAL PALSY, NO VISUAL LOSS, GAZE IS NORMAL, NO DYSARTHRIA. HEAD CT- HYPERDENSITIES IN THE RIGHT POSTERIOR PARIETAL & LEFT OCCIPITOPARIETAL REGIONS CONCERNING FOR DEVELOPING INFARCT./POSSIBLE ISCHEMIC STROKE/. CODE STROKE ACTIVATED@ .
[2021-06-15 23:34] LABS: BASOPHILS % (AUTO) 0.1 % (0.0-2.0); EOSINOPHILS % (AUTO) 0.1 % (0.0-6.0); HEMATOCRIT 30 % (39-51); HEMOGLOBIN 9.5 g/dL (13.5-17.5); LYMPHOCYTES # (AUTO) 0.3 K/uL (0.8-4.8); LYMPHOCYTES % (AUTO) 3.4 % (20.0-44.0); MEAN CORPUSCULAR HGB CONC 32 g/dl (31.0-36.0); MEAN CORPUSCULAR VOLUME 88 fL (80-96); MONOCYTES # (AUTO) 0.4 K/uL (0.1-1.30); MONOCYTES % (AUTO) 4.6 % (2.0-12.0); NEUTROPHILS # (AUTO) 7.3 K/uL (1.8-8.9); NEUTROPHILS % (AUTO) 91.8 % (43.0-81.0); PLATELET COUNT (AUTO) 94 K/uL (150-450); RED BLOOD CELL COUNT(AUTO) 3.41 MIL/uL (4.5-6.0)
[2021-06-15 23:49] LABS: CALCIUM, SERUM 7.8 mg/dL (8.5-10.1); POTASSIUM 4.5 mmol/L (3.5-5.1)
[2021-06-16] VITALS: BP 146/83
[2021-06-16 00:01] LABS: ALBUMIN 2.4 g/dL (3.4-5.0); BILIRUBIN,TOTAL 0.6 mg/dL (0.2-1.0); TOTAL PROTEIN, SERUM 5.4 g/dL (6.4-8.2)
[2021-06-16 00:24] LABS: CHOLESTEROL 219 mg/dL (<200); HDL CHOLESTEROL 56 mg/dL (40-60); LDL 129 mg/dL (0-99); TRIGLYCERIDES 132 mg/dL (30-150)
[2021-06-16 04:00] VITALS: BP 142/90
[2021-06-16 05:58] LABS: BASOPHILS % (AUTO) 0.1 % (0.0-2.0); HEMATOCRIT 30 % (39-51); HEMOGLOBIN 9.7 g/dL (13.5-17.5); LYMPHOCYTES # (AUTO) 0.8 K/uL (0.8-4.8); LYMPHOCYTES % (AUTO) 7.1 % (20.0-44.0); MEAN CORPUSCULAR HGB CONC 32 g/dl (31.0-36.0); MEAN CORPUSCULAR VOLUME 88 fL (80-96); MONOCYTES # (AUTO) 0.7 K/uL (0.1-1.30); MONOCYTES % (AUTO) 6.3 % (2.0-12.0); NEUTROPHILS # (AUTO) 9.2 K/uL (1.8-8.9); NEUTROPHILS % (AUTO) 86.5 % (43.0-81.0); PLATELET COUNT (AUTO) 104 K/uL (150-450); RED BLOOD CELL COUNT(AUTO) 3.46 MIL/uL (4.5-6.0); WHITE BLOOD COUNT (AUTO) 10.6 K/uL (4.3-11.0)
--- NOTE | 2021-06-16 06:04 | NUR ---
TEXT DR. HERNANDEZ FOR MRI APPROVAL.
--- NOTE | 2021-06-16 06:33 | NUR ---
RN NOTE PATIENT IS A/OX1, ALERT TO SELF. PATIENT IS YELLING THROUGHOUT SHIFT. ON OXYGEN 6L VIA NASAL CANNULA AT BEGINNING OF SHIFT. PATIENT IS NOW ON 10L SIMPLE MASK O2 SAT 95%. RESPIRATIONS ARE EVEN AND UNLABORED. NO SOB NOTED. NO C/O PAIN. SINUS RHYTHM ON THE MONITOR. IV ACCESS IN LFA#20, LFA#18 PATENT AND SALINE LOCKED. PATIENT FINISHED HD AT START OF SHIFT. THERE IS ORDER FOR EPOGEN 4000 UNITS, NO EPOGEN IN OMNI CELL, CASETTE NO FRIDGE. CIRCULATION WORKER AWARE. PATIENT HAD A FALL THIS SHIFT, UNWITNESSED, FOUND ON FLOOR AFTER BED ALARM WENT OFF. INJURY TO BACK OF HEAD AND BRUISE ON MID BACK. PHOTOS TAKEN AND PLACED IN CHART. NO NEW NEUROLOGICAL DEFICITS, PATIENT HAS HISTORY CVA WITH RIGHT SIDE WEAKNESS. ORDER WAS PLACED FOR CT OF HEAD, RESTRAINTS AND NEURO CHECKS Q4HR. CT HEAD RESULTS "MAY BE DEVELOPING ACUTE INFARCT" PROMPTED THE ON-CALL LAUREEN SIDDIQUI TO CALL CODE STROKE. CODE STROKE ACTIVATED AND PROTOCOL FOLLOWED. SAFETY MEASURE IN PLACE.
[2021-06-16 07:11] LABS: CALCIUM, SERUM 8.2 mg/dL (8.5-10.1); CREATININE 3.2 mg/dL (0.6-1.3); POTASSIUM 4.5 mmol/L (3.5-5.1)
--- NOTE | 2021-06-16 07:30 | NUR ---
CATTLE DEALER AM NOTES PATIENT IN BED, AO X CONFUSED, ON 10L MASK, O2 SAT 99%, NOT IN ANY DISTRESS, RESPIRATION UNLABORED. NO SOB OR DISCOMFORT. SR HR 85 ON MONITOR. WITH RIGHT CHEST PERMA CATH IN PLACE. CDI DRESSING. DENIES PAIN, LFA 20G AND LFA 18G FLUSHES WELL, SITE CLEAR. UNABLE TO AMBULATE, WEARS DIAPER, ABLE TO TURN SELF. RENAL STANDARD DIET. ABLE TO SWALLOW PILLS. HOB ELEVATED. SAFETY MEASURES IN PLACE. ISOLATION PRECAUTION OBSERVED. BED LOW LOCKED, SRU X 2, CALL LIGHT WITHIN REACH, WILL CONT TO MONITOR. PER POOL LIFEGUARD, PATIENT FELL LAST NIGHT. NIHSS - 15
[2021-06-16 08:00] VITALS: BP_SYST 130; BP_SYST 154; BP_DIAS 74; BP_DIAS 92
[2021-06-16] MEDS: LEVOTHYROXINE SODIUM 75 MCG TABLET PO SCH (08:29)
[2021-06-16] MEDS: PANTOPRAZOLE 40 MG TABLET.DR PO SCH (08:30)
[2021-06-16] MEDS: methylPREDNISolone SOD SUCC 125 MG/2ML VIAL IV SCH ×2 (08:31→17:15)
[2021-06-16] MEDS: CALCIUM CARBONATE (1250) 500 MG TABLET PO SCH (08:31)
[2021-06-16] MEDS: FOLIC ACID 1 MG TABLET PO SCH (08:31)
[2021-06-16] MEDS: LEVETIRACETAM (250 MG) 250 MG TABLET PO SCH ×2 (08:31→21:16)
[2021-06-16] MEDS: DULOXETINE HCL 30 MG CAPSULE.DR PO SCH (08:31)
[2021-06-16] MEDS: GABAPENTIN 100 MG CAPSULE PO SCH ×3 (08:32→17:15)
[2021-06-16] MEDS: Fenofibrate 48 MG TABLET PO SCH (08:32)
[2021-06-16] MEDS: CARVEDILOL 3.125 MG TABLET PO SCH ×2 (08:32→17:15)
[2021-06-16] MEDS: HYDROXYCHLOROQUINE 200 MG TABLET PO SCH (08:32)
[2021-06-16] MEDS: FINASTERIDE (5 MG) 5 MG TABLET PO SCH (08:32)
[2021-06-16] MEDS: predniSONE 5 MG TABLET PO SCH (08:32)
[2021-06-16 08:33] LABS: ABG OXYGEN SATURATION 94.7 % (92.0-98.5); ABG PCO2 35.5 mmHg (35.0-45.0); ABG PO2 78.1 mmHg (75.0-100.0); AaDO2 310.7 mmHg; COHb 0.1 % (0.5-1.5); MetHb 0.1 % (0.0-1.5); O2Hb 94.5 % (94.0-97.0); SITE, ABG Right Radial; VENT MODE, BG SIMPLE MASK
[2021-06-16] MEDS: AMLODIPINE BESYLATE 10 MG TABLET PO SCH (08:33)
[2021-06-16] MEDS: PROSOURCE / PROSTAT (PYXIS) 30 ML UDC PO SCH ×3 (08:34→17:16)
--- NOTE | 2021-06-16 09:30 | NUR ---
RN NOTES DUE MEDS GIVEN BP RECHECKED 131/79
[2021-06-16 11:37] LABS: BAND % (MANUAL) 2 % (0.0-5.0); LYMPHOCYTES % (MANUAL) 12 % (16-48); MONOCYTES % (MANUAL) 8 % (0-11.0); NEUTROPHILS % (MANUAL) 78 (42-76)
[2021-06-16 12:00] VITALS: BP 130/74
[2021-06-16] MEDS: LORAZEPAM INJ 2 MG/ML VIAL IV PRN (13:11)
[2021-06-16] MEDS: CEFEPIME 2 GM in IV D5W 100 ML IV SCH (15:40)
[2021-06-16 16:00] VITALS: BP 120/84
--- NOTE | 2021-06-16 18:41 | NUR ---
GRINDER WATCH PARTS CLOSING NOTES PT RESTING COMFORTABLY, ASLEEP, A/O, CONFUSED, RESPIRATION UNLABORED ON 10L O2 SIMPLE MASK. O2 SAT 95%-100%. DENIES PAIN AT THIS TIME. SR HR 80s- 90s. RT CHEST PERMACATH IN PLACE. LFA 20G FLUSHES WELL. SITE CLEAR. PERFORMED PM CARE EARLIER. ASSISTED/ TURNED AND REPOSITIONED Q 2 HOURS. HOB ELEVATED. SAFETY MEASURES IN PLACE, BED LOW LOCKED, ALL NEEDS MET AT THIS TIME. WILL ENDORSE TO NEXT SHIFT FOR JUSTEN. PATIENT IS FOR MRI BUT WAS UNABLE TO BE DONE TODAY. PER DANE, WILL DO TOMORROW. DR. KUMARI NOTIFIED.
[2021-06-16 20:00] VITALS: BP 140/83
--- NOTE | 2021-06-16 20:00 | NUR ---
SHIELD RUNNER NOTE PT IN BED ASLEEP, AROUSABLE. A/O X 1, CONFUSED. NO DISTRESS OR DISCOMFORT NOTED. DENIES PAIN. REMAIN ON O2 10 L VIA SIMPLE MASK. ON TELE MONITOR SR HR 76. PT WITH RESTRAINT ON LT SOFT WRIST RESTRAINT. LFA #18 G SL INTACT AND PATENT. REPOSITION HIM Q2H, KEPT HIM DRY AND CLEAN. ALL NEEDS ATTENDED. CONTINUE TO MONITOR HIM.
[2021-06-16] MEDS: TAMSULOSIN 0.4 MG CAP.SR.24H PO SCH (21:16)
[2021-06-16] MEDS: ATORVASTATIN 40 MG TABLET PO SCH (21:16)
[2021-06-17] VITALS: BP_SYST 142; BP_SYST 144; BP_DIAS 77; BP_DIAS 85
[2021-06-17] MEDS: LORAZEPAM INJ 2 MG/ML VIAL IV PRN (01:06)
[2021-06-17 04:00] VITALS: BP 120/84
--- NOTE | 2021-06-17 07:30 | NUR ---
LABORER SHIPYARD AM NOTES PATIENT IN BED, AO X CONFUSED, ON 10L MASK, O2 SAT 99%, NOT IN ANY DISTRESS, RESPIRATION UNLABORED. NO SOB OR DISCOMFORT. SR HR 85 ON MONITOR. WITH RIGHT CHEST PERMA CATH IN PLACE. CDI DRESSING. DENIES PAIN, LFA 18G FLUSHES WELL, SITE CLEAR. UNABLE TO AMBULATE, WEARS DIAPER, ABLE TO TURN SELF. RENAL STANDARD DIET. ABLE TO SWALLOW PILLS. HOB ELEVATED. SAFETY MEASURES IN PLACE. ISOLATION PRECAUTION OBSERVED. BED LOW LOCKED, SRU X 2, CALL LIGHT WITHIN REACH, WILL CONT TO MONITOR. NIHSS - 15 PATIENT FOR DIALYSIS TODAY AND MRI OF BRAIN
[2021-06-17 08:00] VITALS: BP 131/78
[2021-06-17] MEDS: PANTOPRAZOLE 40 MG TABLET.DR PO SCH (08:19)
[2021-06-17] MEDS: LEVOTHYROXINE SODIUM 75 MCG TABLET PO SCH (08:20)
[2021-06-17] MEDS: LEVETIRACETAM (250 MG) 250 MG TABLET PO SCH ×2 (08:37→21:21)
[2021-06-17] MEDS: methylPREDNISolone SOD SUCC 125 MG/2ML VIAL IV SCH ×2 (08:37→16:12)
[2021-06-17] MEDS: DULOXETINE HCL 30 MG CAPSULE.DR PO SCH (08:37)
[2021-06-17] MEDS: GABAPENTIN 100 MG CAPSULE PO SCH ×3 (08:38→16:14)
[2021-06-17] MEDS: CALCIUM CARBONATE (1250) 500 MG TABLET PO SCH (08:38)
[2021-06-17] MEDS: Fenofibrate 48 MG TABLET PO SCH (08:38)
[2021-06-17] MEDS: FOLIC ACID 1 MG TABLET PO SCH (08:38)
[2021-06-17] MEDS: HYDROXYCHLOROQUINE 200 MG TABLET PO SCH (08:38)
[2021-06-17] MEDS: FINASTERIDE (5 MG) 5 MG TABLET PO SCH (08:38)
[2021-06-17] MEDS: PROSOURCE / PROSTAT (PYXIS) 30 ML UDC PO SCH ×3 (08:40→16:14)
[2021-06-17] MEDS: CARVEDILOL 3.125 MG TABLET PO SCH ×2 (08:42→16:14)
[2021-06-17] MEDS: AMLODIPINE BESYLATE 10 MG TABLET PO SCH (08:42)
--- NOTE | 2021-06-17 08:45 | NUR ---
RN NOTES DR. HAZEL AT BEDSIDE. PATIENT PLACED ON 6L O2 NASAL CANULA. O2 SAT AT 94-96% PER DR. HAZEL TO KEEP PATIENT ON NASAL CANULA.
--- NOTE | 2021-06-17 09:30 | NUR ---
RN NOTES DUE MEDS GIVEN MORE ALERT AND CALM BUT WITH EPISODES OF CRYING
[2021-06-17 09:47] LABS: BASOPHILS % (AUTO) 0.5 % (0.0-2.0); HEMATOCRIT 28 % (39-51); HEMOGLOBIN 8.7 g/dL (13.5-17.5); LYMPHOCYTES # (AUTO) 0.5 K/uL (0.8-4.8); LYMPHOCYTES % (AUTO) 9.2 % (20.0-44.0); MEAN CORPUSCULAR HGB CONC 32 g/dl (31.0-36.0); MEAN CORPUSCULAR VOLUME 89 fL (80-96); MONOCYTES # (AUTO) 0.4 K/uL (0.1-1.30); NEUTROPHILS # (AUTO) 4.3 K/uL (1.8-8.9); NEUTROPHILS % (AUTO) 82.3 % (43.0-81.0); PLATELET COUNT (AUTO) 101 K/uL (150-450); RED BLOOD CELL COUNT(AUTO) 3.11 MIL/uL (4.5-6.0); WHITE BLOOD COUNT (AUTO) 5.2 K/uL (4.3-11.0)
[2021-06-17 09:59] LABS: ALBUMIN 2.3 g/dL (3.4-5.0); BILIRUBIN,TOTAL 0.5 mg/dL (0.2-1.0); CREATININE 4.1 mg/dL (0.6-1.3); POTASSIUM 4.9 mmol/L (3.5-5.1); TOTAL PROTEIN, SERUM 5.1 g/dL (6.4-8.2)
[2021-06-17 12:00] VITALS: BP 139/86
[2021-06-17] MEDS ORDERED: EPOETIN ALFA-EPBX 4,000 UNIT/ML VIAL IV PRN (15:00)
[2021-06-17] MEDS ORDERED: EPOETIN ALFA-EPBX 4,000 UNIT/ML VIAL IV SCH (15:00)
[2021-06-17] MEDS: CEFEPIME 2 GM in IV D5W 100 ML IV SCH (15:05)
[2021-06-17 16:00] VITALS: BP 127/80
--- NOTE | 2021-06-17 17:32 | NUR ---
RN NOTES MRI RESULT RELAYED TO DR. JOHNSON AND NATALIE TAMEZ NP. NNO
--- NOTE | 2021-06-17 18:30 | NUR ---
ELECTRIC REFRIGERATOR PREPARER CLOSING NOTES PT RESTING COMFORTABLY, HAD DINNER. MORE ALERT, RESPIRATION UNLABORED ON 6L O2 NASAL CANULA. O2 SAT 95%-99%. DENIES PAIN AT THIS TIME. SR HR 80s- 90s. RT CHEST PERMACATH IN PLACE. LFA 20G FLUSHES WELL. SITE CLEAR. PERFORMED PM CARE EARLIER. ASSISTED/ TURNED AND REPOSITIONED Q 2 HOURS. HOB ELEVATED. SAFETY MEASURES IN PLACE, BED LOW LOCKED, ALL NEEDS MET AT THIS TIME. WILL ENDORSE TO NEXT SHIFT FOR JUSTEN. HEMODIALYSIS COMPLETED TODAY WITH 1500ML OUTPUT.
--- NOTE | 2021-06-17 19:29 | NUR ---
HOT CELL TECHNICIAN NOTE PT IN BED AWAKE. A/O X 2, CONFUSED AT TIME. NO DISTRESS OR DISCOMFORT NOTED. DENIES PAIN. ON O2 6L VIA N/C O2 SAT 98%. ON TELE SR HR 87. PT IS REMAIN OFF FROM RESTRAINTS. PT IS COOPERATIVE AT THIS TIME. RT ARM IS CONTRACTED. LFA #18 G SL INTACT AND PATENT. ALL NEEDS ATTENDED. KEPT HIM DRY AND CLEAN. VSS. CONTINUE TO MONITOR HIM.
[2021-06-17 20:00] VITALS: BP 135/75
[2021-06-17] MEDS: ATORVASTATIN 40 MG TABLET PO SCH (21:20)
[2021-06-17] MEDS: APIXABAN 5 MG TABLET PO SCH (21:21)
[2021-06-17] MEDS: TAMSULOSIN 0.4 MG CAP.SR.24H PO SCH (21:21)
--- NOTE | 2021-06-17 22:05 | NUR ---
PLATE CORRECTOR NOTE REPORT GIVEN TO NURSE MARINE FOR CONTINUE TO CARE.
[2021-06-18] VITALS: BP 144/77
--- NOTE | 2021-06-18 01:00 | NUR ---
RN NOTES, RECEIVED PATIENT FROM [place] RN FOR CONTINUATION OF CARE, PATIENT ON 6LPM NC NO SOB/ACUTE DISTRESS NOTED, BED ALARM ON, BED LOCKED AND IN LOWEST POSITION, S/R OF BED UP X2, CALL LIGHT W/I REACH, ALL SAFETY PRECAUTIONS FOLLOWED, WILL CONTINUE TO MONITOR CLOSELY.
[2021-06-18] MEDS: LORAZEPAM INJ 2 MG/ML VIAL IV PRN ×2 (01:17→12:21)
--- NOTE | 2021-06-18 01:25 | NUR ---
ATIVAN GIVEN FOR AGITATION AND INABILITY TO SLEEP, PATIENT ALSO C/O CONSTIPATION AND NO BOWEL MOVEMENT FOR 3 DAYS, MOM PRN ADMINISTERED ORDERED, WILL CONTINUE TO MONITOR CLOSELY.
[2021-06-18 04:00] VITALS: BP 139/81
--- NOTE | 2021-06-18 06:23 | NUR ---
RN CLOSING NOTES, PATIENT ASLEEP AT THIS TIME, CONT ON 6LPM NC NO SOB/ACUTE DISTRESS NOTED, NO SIGNIFICANT CHANGE IN CONDITION DURING LAST NIGHT, VITAL SIGNS WNL, WITH OPTIMAL O2 SAT LEVEL, NO CHANGE IN LOC, PATIENT STATED HE WANTS TO BE FULL CODE, MD AWARE, BED ALARM ON, BED LOCKED AND IN LOWEST POSITION, S/R OF BED UP X2, CALL LIGHT W/I REACH, ALL SAFETY PRECAUTIONS FOLLOWED, WILL ENDORSE CONTINUITY OF CARE TO ONCOMING NURSE.
[2021-06-18] MEDS: PANTOPRAZOLE 40 MG TABLET.DR PO SCH (07:29)
[2021-06-18] MEDS: LEVOTHYROXINE SODIUM 75 MCG TABLET PO SCH (07:30)
--- NOTE | 2021-06-18 07:46 | NUR ---
RN OPENING NOTE PT IN BED AWAKE. A/O X 2, CONFUSED. NO DISTRESS OR DISCOMFORT NOTED. NO SOB AND DENIES PAIN. ON O2 6L VIA N/C O2 SAT 98%. ON TELE SR HR 87. PT IS COOPERATIVE AT THIS TIME. RT ARM IS CONTRACTED. LFA #18 G SL INTACT AND PATENT. ALL SAFETY MEASURES IN PLACE, BED IN LOWEST LOCKED POSITION, SR UP X2, CALL LIGHT WITHIN REACH. WILL CONTINUE TO MONITOR THROUGHOUT SHIFT.
[2021-06-18 08:00] VITALS: BP 141/82
--- NOTE | 2021-06-18 08:00 | NUR ---
RN NOTES RECEIVED REPORT FROM SHREYA SMITH. PATIENT IN STABLE CONDITION.
[2021-06-18] MEDS: methylPREDNISolone SOD SUCC 125 MG/2ML VIAL IV SCH ×2 (08:52→16:14)
[2021-06-18] MEDS: PROSOURCE / PROSTAT (PYXIS) 30 ML UDC PO SCH ×3 (08:52→16:19)
[2021-06-18] MEDS: DULOXETINE HCL 30 MG CAPSULE.DR PO SCH (08:52)
[2021-06-18] MEDS: Fenofibrate 48 MG TABLET PO SCH (08:52)
[2021-06-18] MEDS: GABAPENTIN 100 MG CAPSULE PO SCH ×3 (08:52→16:15)
[2021-06-18] MEDS: CALCIUM CARBONATE (1250) 500 MG TABLET PO SCH (08:52)
[2021-06-18] MEDS: LEVETIRACETAM (250 MG) 250 MG TABLET PO SCH ×2 (08:53→21:12)
[2021-06-18] MEDS: CARVEDILOL 3.125 MG TABLET PO SCH ×2 (08:53→16:15)
[2021-06-18] MEDS: HYDROXYCHLOROQUINE 200 MG TABLET PO SCH (08:53)
[2021-06-18] MEDS: AMLODIPINE BESYLATE 10 MG TABLET PO SCH (08:53)
[2021-06-18] MEDS: FINASTERIDE (5 MG) 5 MG TABLET PO SCH (08:53)
[2021-06-18] MEDS: FOLIC ACID 1 MG TABLET PO SCH (08:53)
[2021-06-18] MEDS: APIXABAN 5 MG TABLET PO SCH (09:00)
[2021-06-18 10:39] LABS: BASOPHILS % (AUTO) 0.3 % (0.0-2.0); HEMATOCRIT 29 % (39-51); HEMOGLOBIN 9.3 g/dL (13.5-17.5); LYMPHOCYTES # (AUTO) 0.7 K/uL (0.8-4.8); LYMPHOCYTES % (AUTO) 6.4 % (20.0-44.0); MEAN CORPUSCULAR HGB CONC 32 g/dl (31.0-36.0); MEAN CORPUSCULAR VOLUME 88 fL (80-96); MONOCYTES # (AUTO) 0.7 K/uL (0.1-1.30); MONOCYTES % (AUTO) 7.1 % (2.0-12.0); NEUTROPHILS # (AUTO) 8.9 K/uL (1.8-8.9); NEUTROPHILS % (AUTO) 86.2 % (43.0-81.0); PLATELET COUNT (AUTO) 102 K/uL (150-450); RED BLOOD CELL COUNT(AUTO) 3.28 MIL/uL (4.5-6.0); WHITE BLOOD COUNT (AUTO) 10.4 K/uL (4.3-11.0)
[2021-06-18 11:03] LABS: CALCIUM, SERUM 7.9 mg/dL (8.5-10.1); CREATININE 3.6 mg/dL (0.6-1.3); POTASSIUM 4.5 mmol/L (3.5-5.1)
[2021-06-18 12:00] VITALS: BP 139/77
--- NOTE | 2021-06-18 12:21 | NUR ---
RN NOTES LORAZEPAM 0.5 MG IV GIVEN FOR RESTLESSNESS.
[2021-06-18] MEDS: CEFEPIME 2 GM in IV D5W 100 ML IV SCH (14:36)
[2021-06-18 16:00] VITALS: BP 112/64
[2021-06-18] MEDS: WARFARIN SODIUM 1 MG TABLET PO SCH (16:17)
--- NOTE | 2021-06-18 18:40 | NUR ---
SPEED RUNNER CLOSING NOTES PATIENT IN BED, ASLEEP. EASILY AROUSED. NO SIGNS OF ACUTE DISTRESS NOTED. REMAINS ON O2 @ 6LPM VIA N/C, NO SOB NOTED. WITH IV ACCESS ON LEFT FOREARM #18G, INTACT AND PATENT, SALINE LOCKED. ON TELE MONITOR, CURRENT READING OF SR, HR @77. ALL DUE MEDS GIVEN, TOLERATED WELL. SAFETY MEASURES MAINTAINED. BED IN LOWEST LOCKED POSITION, SR UP, CALL LIGHT PLACED WITHIN EASY REACH. WILL ENDORSE TO NEXT SHIFT FOR CONTINUITY OF CARE.
[2021-06-18 20:00] VITALS: BP 133/80
--- NOTE | 2021-06-18 20:13 | NUR ---
RN NOTE RECEIVED PT IN BED, SLEEPING AROUSES EASILY. ORIENTED X 1 -2. PT ON O2 AT 6L VIA NC. NOT IN ANY DISTRESS. PT DENIES ANY PAIN OR SOB AT THIS TIME. HD CATH ON RCW INTACT, NO SIGNS OF INFECTION NOTED. IV ON LFA PATENT AND INTACT. ALL SAFETY MEASURES IN PLACE PER PROTOCOL. WILL CONTINUE TO MONITOR.
[2021-06-18] MEDS: TAMSULOSIN 0.4 MG CAP.SR.24H PO SCH (21:12)
[2021-06-18] MEDS: ATORVASTATIN 40 MG TABLET PO SCH (21:12)
[2021-06-18] MEDS: ENOXAPARIN SODIUM 80 MG/0.8 ML DISP.SYRIN SQ SCH (21:13)
[2021-06-19] VITALS: BP 129/81
[2021-06-19 04:00] VITALS: BP 131/75
[2021-06-19 06:38] LABS: BASOPHILS % (AUTO) 0.1 % (0.0-2.0); HEMATOCRIT 30 % (39-51); HEMOGLOBIN 9.6 g/dL (13.5-17.5); LYMPHOCYTES # (AUTO) 0.3 K/uL (0.8-4.8); LYMPHOCYTES % (AUTO) 4.8 % (20.0-44.0); MEAN CORPUSCULAR HGB CONC 32 g/dl (31.0-36.0); MEAN CORPUSCULAR VOLUME 89 fL (80-96); MONOCYTES # (AUTO) 0.3 K/uL (0.1-1.30); MONOCYTES % (AUTO) 4.1 % (2.0-12.0); NEUTROPHILS # (AUTO) 6.2 K/uL (1.8-8.9); PLATELET COUNT (AUTO) 91 K/uL (150-450); WHITE BLOOD COUNT (AUTO) 6.9 K/uL (4.3-11.0)
[2021-06-19] MEDS: LEVOTHYROXINE SODIUM 75 MCG TABLET PO SCH (06:46)
[2021-06-19] MEDS: PANTOPRAZOLE 40 MG TABLET.DR PO SCH (06:46)
--- NOTE | 2021-06-19 06:56 | NUR ---
RN NOTE PT SLEPT WELL AT NIGHT. NO CHANGES IN LOC NOTED. PT CAN FOLLOW COMMANDS, COOPERATIVE. PT COMPLAINED OF HEADACHE THIS MORNING, WAS ABOUT TO GIVE TYLENOL, PT VERBALIZES HE DOES NOT HAVE ANY PAIN ANYMORE, REFUSED TO TAKE TYLENOL. PT ON FREQUENT VISUAL CHECKS. ALL NEEDS ATTENDED. REMAIN SR ON TELE MONITOR. ALL SAFETY MEASURES MAINTAINED, WILL ENDORSE TO NEXT SHIFT NURSE FOR JUSTEN.
[2021-06-19 07:05] LABS: CALCIUM, SERUM 7.7 mg/dL (8.5-10.1); CREATININE 4.1 mg/dL (0.6-1.3); MAGNESIUM 2.4 mg/dL (1.8-2.4); PHOSPHORUS 4.8 mg/dL (2.5-4.9); POTASSIUM 5.7 mmol/L (3.5-5.1)
--- NOTE | 2021-06-19 07:30 | NUR ---
ms rn received patient on bed sleeping,. not in any form of distress, respirations even and unlabored, no sob noted. denies pain at this time. will monitor patient.
[2021-06-19 08:00] VITALS: BP 140/86
[2021-06-19] MEDS: PROSOURCE / PROSTAT (PYXIS) 30 ML UDC PO SCH ×3 (09:00→17:00)
--- NOTE | 2021-06-19 09:00 | NUR ---
ms rn held due medsat this time, patient is so sleepy will assess again later.
--- NOTE | 2021-06-19 10:00 | NUR ---
ms donya was seen by duy momin, w/ orders made and carried out.
--- NOTE | 2021-06-19 11:00 | NUR ---
ms rn patient is awake, was able to take morning meds.
[2021-06-19] MEDS ORDERED: ENOX80DI SQ (11:15)
[2021-06-19] MEDS ORDERED: GABA100C PO (11:15)
[2021-06-19] MEDS ORDERED: CARV3.122 PO (11:15)
[2021-06-19] MEDS: methylPREDNISolone SOD SUCC 125 MG/2ML VIAL IV SCH ×2 (11:30→17:50)
[2021-06-19] MEDS: CALCIUM CARBONATE (1250) 500 MG TABLET PO SCH (11:31)
[2021-06-19] MEDS: GABAPENTIN 100 MG CAPSULE PO SCH ×3 (11:31→17:50)
[2021-06-19] MEDS: Fenofibrate 48 MG TABLET PO SCH (11:31)
[2021-06-19] MEDS: FOLIC ACID 1 MG TABLET PO SCH (11:31)
[2021-06-19] MEDS: FINASTERIDE (5 MG) 5 MG TABLET PO SCH (11:32)
[2021-06-19] MEDS: LEVETIRACETAM (250 MG) 250 MG TABLET PO SCH (11:32)
[2021-06-19] MEDS: DULOXETINE HCL 30 MG CAPSULE.DR PO SCH (11:32)
[2021-06-19] MEDS: CARVEDILOL 3.125 MG TABLET PO SCH ×2 (11:34→17:00)
[2021-06-19] MEDS: HYDROXYCHLOROQUINE 200 MG TABLET PO SCH (11:42)
[2021-06-19] MEDS: AMLODIPINE BESYLATE 10 MG TABLET PO SCH (11:43)
[2021-06-19] MEDS: ENOXAPARIN SODIUM 80 MG/0.8 ML DISP.SYRIN SQ SCH (11:45)
[2021-06-19 12:00] VITALS: BP 140/86
[2021-06-19 16:00] VITALS: BP 140/86
[2021-06-19 16:24] LABS: BAND % (MANUAL) 1 % (0.0-5.0); LYMPHOCYTES % (MANUAL) 10 % (16-48); MONOCYTES % (MANUAL) 1 % (0-11.0); NEUTROPHILS % (MANUAL) 88 (42-76)
[2021-06-19 17:00] VITALS: BP 98/62
--- NOTE | 2021-06-19 17:00 | NUR ---
ms rn patient meds held at this time, still on hd at this moment.
[2021-06-19] MEDS: CEFEPIME 2 GM in IV D5W 100 ML IV SCH (17:49)
--- NOTE | 2021-06-19 17:50 | NUR ---
ms necktie turner done w/ 1literout, tolerated good.
[2021-06-19] MEDS: WARFARIN SODIUM 1 MG TABLET PO SCH (17:59)
--- NOTE | 2021-06-19 19:30 | NUR ---
TELE OPENING/DISCHARGE NOTE PATIENT RECEIVED AWAKE IN BED. A/OX3. NO S/S OF DISTRESS, BREATHING W/O DIFFICULTY ON 6LO2 NC. PATIENT WAS DISCHARGED, AND [employer] associate CAME AT STARTING TIME OF MY SHIFT. LFA #[id number] REMOVED W/ CATH INTACT. PRESSURE DRESSING APPLIED. ID BAND REMOVED. BELONGINGS & D/C PAPERWORK GIVEN TO [employer] associate TO CARRY FOR PATIENT. THE DAY RN , KRISTI, WAS STILL PRESENT AND AIDED IN GIVING REPORT TO [employer] associate. PATIENT D/C STABLE AND VS WNL: T 97.9, HR 80, RESP 19, O2 100%, BP 148/79. NO PAIN NOTED. PATIENT LEFT UNIT W/O DIFFICULTY. MEASURES TAKEN FOR PATIENT SAFETY.
== END 2021-06-19 19:57 | DRG 133 ==
LOC: ER 20:53 → TRANSITION 22:57 → TELE1 06-10 00:03 → TELE-TD 06-10 00:55 → TELE1 06-12 15:10
PROVIDERS: ADMIT Nurse Practitioner Acute Care; ATTEND Nurse Practitioner Acute Care
PROC: 5A1D70Z Performance of Urinary Filtration, Intermittent, Less than 6 Hours Per Day (ICD-10-PCS; principal; 2021-06-11)
DX: J96.01 Acute respiratory failure with hypoxia (principal); I63.9 Cerebral infarction, unspecified; G93.41 Metabolic encephalopathy; J15.6 Pneumonia due to other Gram-negative bacteria; D84.9 Immunodeficiency, unspecified; I50.23 Acute on chronic systolic (congestive) heart failure; E44.0 Moderate protein-calorie malnutrition; D68.59 Other primary thrombophilia; D69.6 Thrombocytopenia, unspecified; D63.8 Anemia in other chronic diseases classified elsewhere; E83.51 Hypocalcemia; N18.6 End stage renal disease; I13.2 Hypertensive heart and chronic kidney disease with heart failure and with stage 5 chronic kidney disease, or end stage renal disease; E87.1 Hypo-osmolality and hyponatremia; Z99.2 Dependence on renal dialysis; G40.909 Epilepsy, unspecified, not intractable, without status epilepticus; I16.0 Hypertensive urgency; Z20.822 Contact with and (suspected) exposure to COVID-19; E03.9 Hypothyroidism, unspecified; E78.5 Hyperlipidemia, unspecified; E87.5 Hyperkalemia; E88.09 Other disorders of plasma-protein metabolism, not elsewhere classified; F32.9 Major depressive disorder, single episode, unspecified; F41.9 Anxiety disorder, unspecified; G62.9 Polyneuropathy, unspecified; I25.10 Atherosclerotic heart disease of native coronary artery without angina pectoris; Z90.81 Acquired absence of spleen; J90 Pleural effusion, not elsewhere classified; Z79.899 Other long term (current) drug therapy; M32.14 Glomerular disease in systemic lupus erythematosus; I69.351 Hemiplegia and hemiparesis following cerebral infarction affecting right dominant side; N40.0 Benign prostatic hyperplasia without lower urinary tract symptoms; W06.XXXA Fall from bed, initial encounter; Y93.9 Activity, unspecified; I05.2 Rheumatic mitral stenosis with insufficiency; S20.229A Contusion of unspecified back wall of thorax, initial encounter; Y92.230 Patient room in hospital as the place of occurrence of the external cause
CPT/HCPCS: 36415; 36600; 70450-TC; 70551-TC; 71045-TC; 71250-TC; 80048-TC; 80053-TC; 80061-TC; 80076-TC; 82803-TC; 82962-TC; 83735-TC; 83880; 84100-TC; 84443-TC; 84484-TC; 85025-TC; 85610-TC; 85730-TC; 86706; 87081-TC; 87340; 90935-TC; 93307-TC; 94799-TC; 97530-TC; G0378; J0692; J0885; J1650; J2060; J2405; J2930; J3370; J7030; J7050; J7060; J7512; U0003